=== PATIENT | female | born 1985 | race Caucasian/White ===

== ENCOUNTER 2016-07-13 08:46 | Emergency (ER) | payer OTHER ==
[2016-07-13 11:16] LABS: ABSOLUTE EOSINOPHILS # (AUTO) 0.2 10^3/uL (0.0-0.6); ABSOLUTE LYMPHOCYTES (AUTO) 2.5 10^3/uL (0.5-4.7); ABSOLUTE MONOCYTES (AUTO) 0.4 10^3/uL (0.1-1.4); ABSOLUTE NEUT (AUTO) 3.5 10^3/uL (1.7-8.2); BASOPHILS % (AUTO) 0.4 % (0-2); EOSINOPHILS % (AUTO) 2.6 % (0-6); HEMATOCRIT 40.4 % (36.0-47.0); HEMOGLOBIN 13.9 g/dL (12.0-15.5); HGB HCT DIFFERENCE 1.3; LYMPHOCYTES % (AUTO) 37.6 % (13-45); MEAN CORPUSCULAR HEMOGLOBIN 29.5 pg (27.0-33.4); MEAN CORPUSCULAR HGB CONC 34.5 g/dL (32.0-36.0); MEAN CORPUSCULAR VOLUME 86 fl (80-97); MONOCYTES % (AUTO) 6.6 % (3-13); RED BLOOD COUNT 4.72 10^6/uL (3.72-5.28); RED CELL DISTRIBUTION WIDTH 13.4 % (11.5-14.0); SEGMENTED NEUTROPHILS % (AUTO) 52.8 % (42-78); WHITE BLOOD COUNT 6.6 10^3/uL (4.0-10.5)
--- NOTE | 2016-07-13 11:25 | EKG REPORT ---
SEVERITY:- BORDERLINE ECG - SINUS RHYTHM PROBABLE LEFT ATRIAL ABNORMALITY : Confirmed by: Dalton Vazquez 13-Jul-2016 11:24:45
[2016-07-13 11:31] LABS: APPEARANCE,URINE CLOUDY; BILIRUBIN,URINE NEGATIVE (NEGATIVE); GLUCOSE, URINE NEGATIVE (NEGATIVE); KETONES,URINE NEGATIVE (NEGATIVE); LEUKOCYTE ESTERASE,URINE NEGATIVE (NEGATIVE); NITRITE,URINE NEGATIVE (NEGATIVE); PROTEIN,URINE 100 mg/dL (NEGATIVE); UROBILINOGEN,URINE NEGATIVE mg/dL (<2.0)
[2016-07-13 11:36] LABS: ANION GAP 10 (5-19); BLOOD UREA NITROGEN 11 mg/dL (7-20); CALCIUM 9.6 mg/dL (8.4-10.2); CARBON DIOXIDE 31 mmol/L (22-30); CHLORIDE 103 mmol/L (98-107); CREATINE KINASE 59 U/L (30-135); CREATININE RESULT 0.71 mg/dL (0.52-1.25); GLUCOSE 79 mg/dL (75-110); LIPASE 100.2 U/L (23-300); POTASSIUM 4.3 mmol/L (3.6-5.0); SODIUM 143.7 mmol/L (137-145)
[2016-07-13 11:47] LABS: URINE BARBITURATES SCREEN NEGATIVE; URINE METHADONE SCREEN NEGATIVE; URINE OPIATES LOW UNCONFIRMED POSITIVE; URINE PHENCYCLIDINE SCREEN NEGATIVE
[2016-07-13] MEDS ORDERED: LIDOCAINE 5% (700 MG) TRANSDERMAL ADH..PATCH TP ONE (12:26)
--- NOTE | 2016-07-13 12:27 | ER Document Report ---
ED General - General Chief Complaint: Chest Pain > 30 Stated Complaint: CHEST PAIN TRAVEL OUTSIDE OF THE [place] IN LAST 30 DAYS: No - HPI Patient complains to provider of: chest wall pain feeling unwell Notes: Patient coming in today expressing multiple complaints no which the most she is concerned about his left-sided chest wall pain and feeling of unwell. States symptoms ongoing for approximately 24 hours. Patient denies any recent antibiotics denies any recent travel. Patient denies sick contacts. Denies any past medical history. Patient states no nausea no vomiting no diarrhea. - Related Data Allergies/Adverse Reactions: prochlorperazine edisylate [From Compazine] Allergy (Intermediate, Verified 11:10) Hives prochlorperazine maleate [From Compazine] Allergy (Intermediate, Verified 11:10) Hives haloperidol [From Haldol] Allergy (Verified 08/23/12 11:10) haloperidol lactate [From Haldol] Allergy (Verified 08/23/12 11:10) ketorolac tromethamine [From Toradol] Allergy (Verified 08/23/12 11:10) NSAIDS (Non-Steroidal Anti-Inflamma [Nsaids] Allergy (Verified 08/23/12 11:10) Past Medical History - Social History Smoking Status: Current Every Day Smoker Chew tobacco use (# tins/day): No Frequency of alcohol use: None Drug Abuse: None Family History: Reviewed & Not Pertinent Patient has suicidal ideation: No Patient has homicidal ideation: No - Past Medical History Cardiac Medical History: Denies: Hx Atrial Fibrillation, Hx Coronary Artery Disease, Hx Heart Attack, Hx Hypertension Pulmonary Medical History: Denies: Hx Asthma, Hx Bronchitis, Hx COPD, Hx Pneumonia Neurological Medical History: Reports: Hx Migraine. Denies: Hx Cerebrovascular Accident, Hx Seizures Renal/ Medical History: Denies: Hx Peritoneal Dialysis GI Medical History: Musculoskeltal Medical History: Denies Hx Arthritis, Reports Hx Musculoskeletal Trauma Psychiatric Medical History: Reports: Hx Anxiety, Hx Bipolar Disorder Denies: Hx Attention Deficit Hyperactivity Disorder Infectious Medical History: Past Surgical History: Reports: Hx Abdominal Surgery - LAP x 2, Hx Appendectomy , Hx Section - x2, Hx Gynecologic Surgery - oopherectomy, Hx Hysterectomy, Hx Orthopedic Surgery - R Shoulder. Denies: Hx Pacemaker - Immunizations Immunizations up to date: Yes Hx Diphtheria, Pertussis, Tetanus Vaccination: Yes - 2007 Review of Systems - Review of Systems Constitutional: No symptoms reported EENT: No symptoms reported Cardiovascular: Chest pain Respiratory: No symptoms reported Gastrointestinal: No symptoms reported Genitourinary: No symptoms reported Female Genitourinary: No symptoms reported Musculoskeletal: No symptoms reported Skin: No symptoms reported Hematologic/Lymphatic: No symptoms reported Neurological/Psychological: No symptoms reported -: Yes All other systems reviewed and negative Physical Exam - Vital signs Vitals: Temp Pulse Resp BP Pulse Ox 97.9 F 94 20 122/84 100 07/13/16 09:20 07/13/16 09:20 07/13/16 09:20 07/13/16 09:20 07/13/16 09:20 Interpretation: Normal - General General appearance: Appears well, Alert - HEENT Head: Normocephalic, Atraumatic Eyes: Normal Pupils: PERRL - Respiratory Respiratory status: No respiratory distress Chest status: Tender - Tenderness palpation of left side chest reproduces the patient's pain. Breath sounds: Normal Chest palpation: Normal - Cardiovascular Rhythm: Regular Heart sounds: Normal auscultation Murmur: No - Abdominal Inspection: Normal Distension: No distension Bowel sounds: Normal Tenderness: Nontender Organomegaly: No organomegaly - Back Back: Normal, Nontender - Extremities General upper extremity: Normal inspection, Nontender, Normal color, Normal ROM , Normal temperature General lower extremity: Normal inspection, Nontender, Normal color, Normal ROM , Normal temperature, Normal weight bearing. No: Luis Manuel's sign - Neurological Neuro grossly intact: Yes Cognition: Normal Orientation: AAOx4 [place] Coma Scale Eye Opening: Spontaneous [place] Coma Scale Verbal: Oriented Mike Coma Scale Motor: Obeys Commands [place] Coma Scale Total: 15 Speech: Normal Motor strength normal: LUE, RUE, LLE, RLE Sensory: Normal - Psychological Associated symptoms: Normal affect, Normal mood - Skin Skin Temperature: Warm Skin Moisture: Dry Skin Color: Normal Course - Re-evaluation Re-evalutation: 07/13/16 18:54 Patient was evaluated for chest wall pain. No clear etiology seen. Patient was encouraged take Tylenol we will try Lidoderm patches that the patient is allergic to NSAIDs. Review of patient's narcotic database does show multiple narcotics in the last few days explained patient we will hold from prescribing his medication. Patient states understanding. : The patient has atypical chest pain as the patient's chest pain is not suggestive of pulmonary embolus, cardiac ischemia, aortic dissection, or other serious etiology. Given the extremely low risk of these diagnoses further testing and evaluation for these possibilities does not appear to be indicated at this time. The patient has been instructed to return if the symptoms worsen or change in any way. - Vital Signs Vital signs: Temp Pulse Resp BP Pulse Ox 97.8 F 94 26 H 116/77 100 07/13/16 12:39 07/13/16 09:20 07/13/16 12:36 07/13/16 12:37 07/13/16 12:37 - Laboratory Result Diagrams: 07/13/16 10:45 07/13/16 10:45 Laboratory results interpreted by me: 07/13/16 07/13/16 10:45 10:45 Carbon Dioxide 31 H Urine Protein 100 H Discharge - Discharge Clinical Impression: Chest wall pain Condition: Good Disposition: HOME, SELF-CARE Instructions: Chest Wall Pain ([facility]) Additional Instructions: Examination days consistent with chest wall pain. Your laboratory studies showed no other concerning etiologies. Most family treat chest wall pain anti- inflammatory medications. He may also try Lidoderm patches or [id number] solanpas lidocaine patches. Also recommend taking Tylenol. Return to the ER symptoms worsen. Follow-up with your primary care physician. Prescriptions: Lidocaine [Lidoderm 5% (700 mg) Transdermal Patch] 1 patch TP DAILY #30 adh..patch Referrals: LIZA TURNER [Primary Care Provider] - Follow up in 3-5 days
[2016-07-13 13:07] VITALS: BP 116/77
== END 2016-07-13 12:39 | disposition home or self-care (01) ==
LOC: ER 08:46
DX: R07.89 Other chest pain (principal); F17.200 Nicotine dependence, unspecified, uncomplicated; Z88.8 Allergy status to other drugs, medicaments and biological substances
CPT/HCPCS: 36415; 71020; 80048; 80307; 81001; 82550; 83690; 84484; 85025; 93005; 93010; 99285

== ENCOUNTER 2018-08-19 15:41 | Observation (INO) | payer OTHER ==
--- NOTE | 2018-08-19 16:08 | ER Document Report ---
ED Medical Screen (RME) - General Chief Complaint: Abdominal Pain Stated Complaint: ABDOMINAL PAIN Time Seen by Provider: 08/19/18 16:03 Mode of Arrival: Ambulatory Information source: Patient Notes: 33-year-old female presents with right upper quadrant abdominal pain with associated nausea and vomiting. Reports worse with food I have greeted and performed a rapid initial assessment of this patient. A comprehensive ED assessment and evaluation of the patient, analysis of test results and completion of medical decision making process we will be contacted by additional ED providers. PHYSICAL EXAMINATION: Vital signs reviewed-hypertensive GENERAL: Tearful, appears to be in pain, holding her upper stomach. LUNGS: No respiratory distress Musculoskeletal: Normal range of motion NEUROLOGICAL: Normal speech, normal gait. PSYCH: Normal mood, normal affect. SKIN: Warm, Dry, normal turgor, no rashes or lesions noted. TRAVEL OUTSIDE OF THE [place] IN LAST 30 DAYS: No - HPI Onset: Other Onset/Duration: Gradual, Persistent, Worse Quality of pain: Throbbing Severity: Severe Associated Symptoms: Nausea, Vomiting Exacerbated by: Food Relieved by: Denies Similar symptoms previously: No Recently seen / treated by doctor: No - Related Data Smoking: Cigarettes Frequency of alcohol use: None Drug Abuse: None Allergies/Adverse Reactions: prochlorperazine edisylate [From Compazine] Allergy (Intermediate, Verified 08/19/18 16:04) Hives prochlorperazine maleate [From Compazine] Allergy (Intermediate, Verified 08/19/18 16:04) Hives haloperidol [From Haldol] Allergy (Verified 08/19/18 16:04) haloperidol lactate [From Haldol] Allergy (Verified 08/19/18 16:04) ketorolac tromethamine [From Toradol] Allergy (Verified 08/19/18 16:04) NSAIDS (Non-Steroidal Anti-Inflamma [Nsaids] Allergy (Verified 08/19/18 16:04) Past Medical History - Past Medical History Cardiac Medical History: Denies: Hx Atrial Fibrillation, Hx Coronary Artery Disease, Hx Heart Attack, Hx Hypertension Pulmonary Medical History: Denies: Hx Asthma, Hx Bronchitis, Hx COPD, Hx Pneumonia Neurological Medical History: Reports: Hx Migraine. Denies: Hx Cerebrovascular Accident, Hx Seizures Renal/ Medical History: Denies: Hx Peritoneal Dialysis GI Medical History: Musculoskeltal Medical History: Denies Hx Arthritis, Reports Hx Musculoskeletal Trauma Psychiatric Medical History: Reports: Hx Anxiety, Hx Bipolar Disorder Denies: Hx Attention Deficit Hyperactivity Disorder Infectious Medical History: Past Surgical History: Reports: Hx Abdominal Surgery - LAP x 2, Hx Appendectomy, Hx Section - x2, Hx Gynecologic Surgery - oopherectomy, Hx Hysterectomy, Hx Orthopedic Surgery - R Shoulder. Denies: Hx Pacemaker - Immunizations Immunizations up to date: Yes Hx Diphtheria, Pertussis, Tetanus Vaccination: Yes - 2007 Physical Exam - Vital signs Vitals: Temp Pulse Resp BP Pulse Ox 98.0 F 108 H 16 162/103 H 98 08/19/18 15:48 08/19/18 15:48 08/19/18 15:48 08/19/18 15:48 08/19/18 15:48 Course - Vital Signs Vital signs: Temp Pulse Resp BP Pulse Ox 98.0 F 108 H 16 162/103 H 98 08/19/18 15:48 08/19/18 15:48 08/19/18 15:48 08/19/18 15:48 08/19/18 15:48
[2018-08-19] MEDS ORDERED: MORPHINE SULFATE 10 MG/ML INJ IV ONE (16:09)
[2018-08-19] MEDS ORDERED: ONDANSETRON HCL INJ/PF 4 MG/2 ML SDV IV ONE (16:09)
[2018-08-19 16:30] LABS: ABSOLUTE EOSINOPHILS # (AUTO) 2.1 10^3/uL (0.0-0.6); ABSOLUTE LYMPHOCYTES (AUTO) 3.2 10^3/uL (0.5-4.7); ABSOLUTE MONOCYTES (AUTO) 0.6 10^3/uL (0.1-1.4); ABSOLUTE NEUT (AUTO) 3.4 10^3/uL (1.7-8.2); BASOPHILS % (AUTO) 0.5 % (0-2); EOSINOPHILS % (AUTO) 22.5 % (0-6); HEMATOCRIT 36.5 % (36.0-47.0); HEMOGLOBIN 12.5 g/dL (12.0-15.5); LYMPHOCYTES % (AUTO) 34.1 % (13-45); MEAN CORPUSCULAR HEMOGLOBIN 28.4 pg (27.0-33.4); MEAN CORPUSCULAR HGB CONC 34.4 g/dL (32.0-36.0); MEAN CORPUSCULAR VOLUME 83 fl (80-97); MONOCYTES % (AUTO) 6.8 % (3-13); PLATELET COUNT 374 10^3/uL (150-450); RED BLOOD COUNT 4.41 10^6/uL (3.72-5.28); RED CELL DISTRIBUTION WIDTH 13.2 % (11.5-14.0); SEGMENTED NEUTROPHILS % (AUTO) 36.1 % (42-78); TOTAL CELLS COUNTED % (AUTO) 100 %; WHITE BLOOD COUNT 9.5 10^3/uL (4.0-10.5)
[2018-08-19 17:01] LABS: ALANINE AMINOTRANSFERASE 36 U/L (9-52); ALBUMIN 3.8 g/dL (3.5-5.0); ALKALINE PHOSPHATASE 58 U/L (38-126); ANION GAP 7 (5-19); ASPARTATE AMINO TRANSFERASE 47 U/L (14-36); BILIRUBIN,DIRECT 0.1 mg/dL (0.0-0.4); BILIRUBIN,TOTAL 0.2 mg/dL (0.2-1.3); BLOOD UREA NITROGEN 12 mg/dL (7-20); CALCIUM 9.3 mg/dL (8.4-10.2); CARBON DIOXIDE 31 mmol/L (22-30); CHLORIDE 98 mmol/L (98-107); GLUCOSE 105 mg/dL (75-110); POTASSIUM 3.8 mmol/L (3.6-5.0); SODIUM 136.4 mmol/L (137-145); TOTAL PROTEIN 6.1 g/dL (6.3-8.2)
[2018-08-19] MEDS ORDERED: HYDROMORPHONE HCL INJ/PF 2 MG/ML AMPULE IV ONE ×3 (17:20→20:52)
--- NOTE | 2018-08-19 17:26 | ER Document Report ---
ED General - General Chief Complaint: Abdominal Pain Stated Complaint: ABDOMINAL PAIN Time Seen by Provider: 08/19/18 16:03 Primary Care Provider: GURU RATLIFF MD [Primary Care Provider] - Follow up as needed Mode of Arrival: Ambulatory Information source: Patient TRAVEL OUTSIDE OF THE [place] IN LAST 30 DAYS: No - HPI Patient complains to provider of: Right upper quadrant pain Onset: Last week Onset/Duration: Persistent, Worse Quality of pain: Sharp Severity: Severe Pain Level: 4 Associated symptoms: Chills, Fever, Nausea, Vomiting. 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 She had some abdominal discomfort for the past week but this symptoms have worsened over the past couple days. States she has had fevers and chills with nausea and vomiting. Pain radiates to her back. No previous history of this. - Related Data Allergies/Adverse Reactions: prochlorperazine edisylate [From Compazine] Allergy (Intermediate, Verified 08/19/18 16:04) Hives prochlorperazine maleate [From Compazine] Allergy (Intermediate, Verified 08/19/18 16:04) Hives haloperidol [From Haldol] Allergy (Verified 08/19/18 16:04) haloperidol lactate [From Haldol] Allergy (Verified 08/19/18 16:04) ketorolac tromethamine [From Toradol] Allergy (Verified 08/19/18 16:04) NSAIDS (Non-Steroidal Anti-Inflamma [Nsaids] Allergy (Verified 08/19/18 16:04) Past Medical History - General Information source: Patient - Social History Smoking Status: Current Every Day Smoker Frequency of alcohol use: None Drug Abuse: None Family History: Reviewed & Not Pertinent Patient has suicidal ideation: No Patient has homicidal ideation: No - Past Medical History Cardiac Medical History: Denies: Hx Atrial Fibrillation, Hx Coronary Artery Disease, Hx Heart Attack, Hx Hypertension Pulmonary Medical History: Denies: Hx Asthma, Hx Bronchitis, Hx COPD, Hx Pneumonia Neurological Medical History: Reports: Hx Migraine. Denies: Hx Cerebrovascular Accident, Hx Seizures Renal/ Medical History: Denies: Hx Peritoneal Dialysis GI Medical History: Musculoskeletal Medical History: Denies Hx Arthritis, Reports Hx Musculoskeletal Trauma Psychiatric Medical History: Reports: Hx Anxiety, Hx Bipolar Disorder Denies: Hx Attention Deficit Hyperactivity Disorder Infectious Medical History: Past Surgical History: Reports: Hx Abdominal Surgery - LAP x 2, Hx Appendectomy, Hx Section - x2, Hx Gynecologic Surgery - oopherectomy, Hx Hysterectomy, Hx Orthopedic Surgery - R Shoulder. Denies: Hx Pacemaker - Immunizations Immunizations up to date: Yes Hx Diphtheria, Pertussis, Tetanus Vaccination: Yes - 2007 Review of Systems - Review of Systems Notes: Constitutional: Positive fever and chills EENT: No eye redness. No eye pain. No ear pain. No sore throat. Cardiovascular: No chest pain. No palpitations. Respiratory: No cough. No shortness of breath. No respiratory distress. Gastrointestinal: Positive for abdominal pain. Positive for nausea and vomiting. Negative for diarrhea Genitourinary: Atraumatic. No lesions. No pain. No discharge. Musculoskeletal: Atraumatic. No swelling. No deformities. Skin: No rash or lesions. Lymphatic: No swollen lymph nodes. Neurologic: No headache. No syncope. Psychiatric: No suicidal or homicidal ideation. Physical Exam - Vital signs Vitals: Temp Pulse Resp BP Pulse Ox 98.0 F 108 H 16 162/103 H 98 08/19/18 15:48 08/19/18 15:48 08/19/18 15:48 08/19/18 15:48 08/19/18 15:48 - Notes Notes: General: Well-developed, well-nourished. Very tearful. Obvious severe discomfort. Nontoxic-appearing Cardiac: Well-perfused. Regular rate and rhythm. No murmurs, rubs, or gallops. Pulmonary: No respiratory distress. No cyanosis. Bilateral lung fiels are clear to auscultation. Abdominal: Exquisite tenderness to palpation over the right upper quadrant. T here is guarding present. No rebound. Abdomen feels firm to palpation. Bowel sounds are present in all 4 quadrants HEENT: Head is atraumatic. Conjunctivae not reddened. No tearing. PERRL. EOMI. Orbits atraumatic. No periorbital swelling or erythema. Oropharynx is without erythema, swelling, or exudates. Neck: Supple. No adenopathy. No meningismus. Dermatologic: Warm with good turgor. No rash. Atraumatic. Chest: Atraumatic. No chest wall tenderness to palpation. Musculoskeletal: Moves all extremities well. No range of motion deficits. no muscular or joint tenderness. No paraspinal muscle tenderness. no midline spinal tenderness or step-off. Genitourinary: Examination deferred Neurologic: No gross neurologic deficits. Psychiatric: Normal mood. Course - Re-evaluation Re-evalutation: 08/19/18 17:26 Patient is presenting like an acute cholecystitis. Ultrasound is pending. 08/19/18 23:13 Patient's labs are all back and gallbladder ultrasound shows sludge. Patient still in intractable abdominal pain and vomiting now. I will contact surgicalist for evaluation. - Vital Signs Vital signs: Temp Pulse Resp BP Pulse Ox 98.1 F 111 H 22 H 157/90 H 98 08/19/18 20:27 08/19/18 20:27 08/19/18 20:27 08/19/18 20:27 08/19/18 20:27 - Laboratory Result Diagrams: 08/19/18 16:17 08/19/18 16:17 Laboratory results interpreted by me: 08/19/18 08/19/18 08/19/18 16:17 16:17 17:39 Seg Neutrophils % 36.1 L Eosinophils % 22.5 H Absolute Eosinophils 2.1 H Sodium 136.4 L Carbon Dioxide 31 H AST 47 H Total Protein 6.1 L Urine Blood SMALL H Ur Leukocyte Esterase MODERATE H - Diagnostic Test Radiology reviewed: Reports reviewed - Consults BECK Time consulted: 23:24 Reason for consultation: 08/19/18 23:24 INTRACTABLE PAIN AND VOMITING Consulted provider: other - Came to evaluate the patient and then agreed to admit her for cholecystectomy. Discharge - Discharge Clinical Impression: Right upper quadrant pain, Sludge in gallbladder Nausea and vomiting Qualifiers: Vomiting type: unspecified Vomiting Intractability: non-intractable Qualified Code(s): R11.2 - Nausea with vomiting, unspecified Condition: Good Disposition: ADMITTED OBSERVATION Admitting Provider: Surgicalist - DR SOLARES Unit Admitted: Surgical Floor Referrals: GURU RATLIFF MD [Primary Care Provider] - Follow up as needed
[2018-08-19 17:49] LABS: APPEARANCE,URINE SLIGHTLY-CLOUDY; BILIRUBIN,URINE NEGATIVE (NEGATIVE); COLOR,URINE YELLOW; GLUCOSE, URINE NEGATIVE (NEGATIVE); KETONES,URINE NEGATIVE (NEGATIVE); LEUKOCYTE ESTERASE,URINE MODERATE (NEGATIVE); NITRITE,URINE NEGATIVE (NEGATIVE); PROTEIN,URINE NEGATIVE (NEGATIVE); URINE SPECIFIC GRAVITY 1.011; UROBILINOGEN,URINE NEGATIVE mg/dL (<2.0)
--- NOTE | 2018-08-19 20:17 | RADIOLOGY REPORT (SQ) ---
EXAM DESCRIPTION: US ABDOMEN LIMITED COMPLETED DATE/TME: 08/19/2018 16:09 CLINICAL HISTORY: 33 years, Female, Pain Findings: Pancreas is within normal limits. Aorta and IVC are within normal limits. Liver is within normal limits with no focal lesions. No biliary dilatation with CBD measuring 6 mm. Portal vein is patent with hepatopedal flow on color and spectral Doppler images. Gallbladder demonstrates small amount of sludge. No significant wall thickening or pericholecystic fluid. No right hydronephrosis. No right upper quadrant ascites. IMPRESSION: Mild gallbladder sludge. No evidence for cholecystitis. No significant biliary dilatation.
--- NOTE | 2018-08-19 22:17 | RADIOLOGY REPORT (SQ) ---
CT ABDOMEN PELVIS WITH IV CONTRAST HISTORY: Abdominal pain. COMPARISON: None. TECHNIQUE: CT scan of the abdomen and pelvis with IV contrast. This exam was performed according to our departmental dose-optimization program, which includes automated exposure control, adjustment of the mA and/or kV according to patient size and/or use of iterative reconstruction technique. FINDINGS: The lung bases are clear. No pleural or pericardial effusions. There is no hiatal hernia. Partially visualized bilateral breast implants. The liver, spleen, pancreas, gallbladder, adrenal glands, and kidneys are unremarkable. No urinary stones are seen. There has been a prior hysterectomy. No small bowel obstruction. The appendix is not well visualized; however there are no inflammatory changes in the right lower quadrant. There is no evidence of diverticulitis. No intraperitoneal free fluid or free air is identified. The aorta is normal caliber. No acute osseous findings are appreciated. There is no body wall hernia. IMPRESSION: No acute abdominal or pelvic pathology.
[2018-08-19] MEDS ORDERED: NORMAL SALINE 1000 ML 1,000 ML IV ONE (23:12)
[2018-08-19] MEDS ORDERED: FENTANYL CITRATE INJ/PF 100 MCG/2 ML AMPUL IV ONE (23:12)
[2018-08-19] MEDS ORDERED: METOCLOPRAMIDE HCL INJ/PF 10 MG/2 ML SDV IV ONE (23:12)
--- NOTE | 2018-08-19 23:53 | PDOC H&P ---
History of Present Illness Admission Date/PCP: 08/19/18 23:32 GURU RATLIFF MD Patient complains of: Abdominal pain History of Present Illness: CLAU MAYORGA is a 33 year old female Presents to the emergency complaining of acute onset abdominal pain, po stprandial right upper quadrant associated with nausea and vomiting. She says several previous episodes over the last several weeks. Patient was seen in the emergency department where she had a gallbladder ultrasound which showed sludge. A CT scan without oral contrast showed no pathology. Patient was treated with antiemetics pain medication fluids and was still writhing in discomfort. Jessicar hayder was consulted and she was advised admission for management of her gallbladder disease. Past Medical History Past Medical History: Migraine headaches; history of bipolar disorder Cardiac Medical History: Denies: Atrial Fibrillation, Coronary Artery Disease, Myocardial Infarction, Hypertension Pulmonary Medical History: Denies: Asthma, Bronchitis, Chronic Obstructive Pulmonary Disease (COPD), Pneumonia Neurological Medical History: Reports: Migraine Denies: Seizures GI Medical History: Musculoskeltal Medical History: Denies: Arthritis Psychiatric Medical History: Reports: Bipolar Disorder Denies: Attention Deficit Hyperactivity Disorder Hematology: Denies: Anemia Past Surgical History Past Surgical History: Reports: Appendectomy, Section - x2, Hysterectomy, Orthopedic Surgery - R Shoulder Denies: Pacemaker Social History Smoking Status: Current Every Day Smoker Hx Recreational Drug Use: No Family History Family History: Reviewed & Not Pertinent Parental Family History Reviewed: Yes Children Family History Reviewed: Yes Sibling(s) Family History Reviewed.: Yes Medication/Allergy Home Medications: No Home Medications 08/19/18 Allergies/Adverse Reactions: prochlorperazine edisylate [From Compazine] Allergy (Intermediate, Verified 08/19/18 16:04) Hives prochlorperazine maleate [From Compazine] Allergy (Intermediate, Verified 08/19/18 16:04) Hives haloperidol [From Haldol] Allergy (Verified 08/19/18 16:04) haloperidol lactate [From Haldol] Allergy (Verified 08/19/18 16:04) ketorolac tromethamine [From Toradol] Allergy (Verified 08/19/18 16:04) NSAIDS (Non-Steroidal Anti-Inflamma [Nsaids] Allergy (Verified 08/19/18 16:04) Review of Systems Constitutional: PRESENT: as per HPI Eyes: ABSENT: visual disturbances Ears: ABSENT: hearing changes Cardiovascular: ABSENT: chest pain, dyspnea on exertion, edema, orthropnea, palpitations Respiratory: ABSENT: cough, hemoptysis Gastrointestinal: PRESENT: as per HPI Genitourinary: PRESENT: as per HPI Musculoskeletal: ABSENT: joint swelling Integumentary: ABSENT: rash, wounds Physical Exam Vital Signs: Temp Pulse Resp BP Pulse Ox 98 F 105 H 23 H 128/76 H 97 08/19/18 23:33 08/19/18 23:33 08/19/18 23:33 08/19/18 23:33 08/19/18 23:33 Intake & Output 08/18/18 08/19/18 08/20/18 06:59 06:59 06:59 Weight 57.6 kg General appearance: PRESENT: other - Quite anxious Head exam: PRESENT: normocephalic Eye exam: PRESENT: EOMI Mouth exam: PRESENT: dry mucosa Neck exam: PRESENT: full ROM Respiratory exam: PRESENT: clear to auscultation shannon Cardiovascular exam: PRESENT: RRR Pulses: PRESENT: normal carotid pulses, normal radial pulses, normal femoral pulses, normal dorsalis pedis pul GI/Abdominal exam: PRESENT: other - Tender right upper quadrant, with no board like rigidity; no abdominal distention Rectal exam: PRESENT: deferred Extremities exam: PRESENT: full ROM Musculoskeletal exam: PRESENT: full ROM Neurological exam: PRESENT: awake, oriented to person, oriented to place, oriented to time, oriented to situation Psychiatric exam: PRESENT: anxious Results Laboratory Results: 08/19/18 16:17 08/19/18 16:17 08/19/18 08/19/18 08/19/18 16:17 16:17 17:39 WBC 9.5 RBC 4.41 Hgb 12.5 Hct 36.5 MCV 83 MCH 28.4 MCHC 34.4 RDW 13.2 Plt Count 374 Seg Neutrophils % 36.1 L Lymphocytes % 34.1 Monocytes % 6.8 Eosinophils % 22.5 H Basophils % 0.5 Absolute Neutrophils 3.4 Absolute Lymphocytes 3.2 Absolute Monocytes 0.6 Absolute Eosinophils 2.1 H Absolute Basophils 0.0 Sodium 136.4 L Potassium 3.8 Chloride 98 Carbon Dioxide 31 H Anion Gap 7 BUN 12 Creatinine 0.85 Est GFR ( Amer) > 60 Est GFR (Non-Af Amer) > 60 Glucose 105 Calcium 9.3 Total Bilirubin 0.2 AST 47 H ALT 36 Alkaline Phosphatase 58 Total Protein 6.1 L Albumin 3.8 Lipase 49.0 Urine Color YELLOW Urine Appearance SLIGHTLY-CLOUDY Urine pH 5.0 Ur Specific Luckey 1.011 Urine Protein NEGATIVE Urine Glucose (UA) NEGATIVE Urine Ketones NEGATIVE Urine Blood SMALL H Urine Nitrite NEGATIVE Ur Leukocyte Esterase MODERATE H Urine WBC (Auto) 7 Urine RBC (Auto) 4 Impressions: Abdomen Ultrasound 08/19/18 16:09 IMPRESSION: Mild gallbladder sludge. No evidence for cholecystitis. No significant biliary dilatation. Abdomen/Pelvis CT 08/19/18 20:53 IMPRESSION: No acute abdominal or pelvic pathology. Assessment & Plan - Diagnosis (1) Sludge in gallbladder Is this a current diagnosis for this admission?: Yes Plan: Impression: Chronic cholecystitis, cholelithiasis, symptomatic, refractory to outpatient management Recommendations: 1. We will set patient up for admission, observation status, interval laparoscopic, possible open cholecystectomy, Dr. Blackmon, August 20. (2) Smoker Is this a current diagnosis for this admission?: Yes (3) History of bipolar disorder Is this a current diagnosis for this admission?: Yes (4) Nausea and vomiting Qualifiers: Vomiting type: unspecified Vomiting Intractability: non-intractable Qualified Code(s): R11.2 - Nausea with vomiting, unspecified Is this a current diagnosis for this admission?: Yes (5) Right upper quadrant pain Is this a current diagnosis for this admission?: Yes - Time Time Spent: 30 to 50 Minutes Medications reviewed and adjusted accordingly: Yes Anticipated discharge: Home - Inpatient Certification Based on my medical assessment, after consideration of the patient's comorbidities, presenting symptoms, or acuity I expect that the services needed warrant INPATIENT care.: Yes I certify that my determination is in accordance with my understanding of Medicare's requirements for reasonable and necessary INPATIENT services [42 CFR 412.3e].: Yes Medical Necessity: Need for Pain Control, Need for IV Antibiotics, Need for Surgery
[2018-08-20] MEDS: ACETAMINOPHEN INJ/PF 1000 MG/100 ML SDV IV SCH ×4 (01:22→18:22)
[2018-08-20] MEDS: RINGERS SOLUTION,LACTATED 1,000 ML IV PRN ×2 (01:30→08:11)
[2018-08-20] MEDS ORDERED: CEFAZOLIN 1 GM/D5W RTU 1 GM/50 ML RTUPB IV ONE ×2 (06:34→09:55)
[2018-08-20] MEDS ORDERED: DEXMEDETOMIDINE INJ 80 MCG/20 ML VIAL IV ONE (09:52)
[2018-08-20] MEDS ORDERED: EPHEDRINE SULFATE INJ 50 MG/1 ML AMPULE ONE (09:52)
[2018-08-20] MEDS ORDERED: MIDAZOLAM 2 MG/2 ML INJ ONE (09:52)
[2018-08-20] MEDS ORDERED: FENTANYL CITRATE INJ/PF 250 MCG/5 ML AMPULE ONE (09:52)
[2018-08-20] MEDS ORDERED: PROPOFOL INJ 200 MG/20 ML VIAL IV ONE (09:53)
[2018-08-20] MEDS ORDERED: ACETAMINOPHEN 1,000 MG/100 ML RTUPB IV ONE (09:53)
[2018-08-20] MEDS ORDERED: BUPIVACAINE HCL 0.5%-EPI 1:200000 INJ/PF 30 ML VIAL ONE (10:14)
[2018-08-20] MEDS ORDERED: DIPHENHYDRAMINE HCL 50 MG/ML VIAL IV PRN (12:23)
[2018-08-20] MEDS ORDERED: FENTANYL CITRATE INJ/PF 100 MCG/2 ML AMPUL IV PRN ×3 (12:23)
[2018-08-20] MEDS ORDERED: MEPERIDINE HCL/PF INJ 25 MG/1 ML DISP.SYRIN IV PRN (12:23)
--- NOTE | 2018-08-20 12:51 | Operative Report ---
Nonrecallable Operative Report DATE OF SURGERY: 08/20/18 PREOPERATIVE DIAGNOSIS: cholecystitis POSTOPERATIVE DIAGNOSIS: cholecystitits OPERATION: laparoscopic cholecystectomy ANESTHESIA: GA TISSUE REMOVED OR ALTERED: gallbladder COMPLICATIONS: none ESTIMATED BLOOD LOSS: 10cc. INTRAOPERATIVE FINDINGS: see dictation PROCEDURE: see dictation
[2018-08-20] MEDS: FENTANYL CITRATE INJ/PF 100 MCG/2 ML AMPUL ONE ×2 (13:17→13:23)
--- NOTE | 2018-08-20 13:23 | OPERATIVE REPORT E ---
Operative Report NAME: CLAU MAYORGA : 1985 AGE: 33Y DATE OF SURGERY: 08/20/2018 ROOM: 228 PREOPERATIVE DIAGNOSIS: Cholecystitis. POSTOPERATIVE DIAGNOSIS: Cholecystitis. OPERATIVE PROCEDURE: Laparoscopic cholecystectomy. SURGEON: PK RAYO M.D. ANESTHESIA: General. INDICATIONS FOR SURGERY: This is a 33-year-old female who presented to the emergency room yesterday with acute onset upper abdominal pain postprandial, right upper quadrant radiating to her back, associated with nausea and vomiting. CT scan was obtained which showed no pathology. Ultrasound shows gallbladder sludge and a mildly thickened gallbladder wall. She was, therefore, scheduled for this procedure. PROCEDURE: The patient was brought to the operating room in an awake and alert stable condition, placed on the operative table in supine position, induced under general anesthesia, and intubated. The abdomen was prepped and draped in the usual sterile manner for the procedure. After an appropriate time out a Veress needle was placed into the umbilicus and the abdomen was insufflated with 6 L of CO2 gas. An infraumbilical 10 mm incision was made with a 15 blade and a 10 mm port placed in the abdominal cavity. Intra-abdominal visualization revealed no evidence of a Veress needle or trocar injury. Two right-sided 5 mm ports were placed under direct vision and an epigastric 5 mm port. The gallbladder was identified; it was placed on traction. The hepatoduodenal ligament was dissected, isolating the cystic duct and cystic artery. Two Endoclips were placed on the stay side and 1 on the specimen side of both these structures, and they were divided. The gallbladder was dissected out of the liver bed with Bovie cautery, placed in an Endobag, and removed through the umbilical port site. The right upper quadrant was irrigated with normal saline and suctioned dry. Hemostasis of the liver bed was obtained with Bovie cautery. After good hemostasis the pneumoperitoneum was reduced and the ports were removed. The umbilical fascial defect was closed with 0 Vicryl and then all 4 skin incisions were closed with intracuticular 4-0 Biosyn. Steri-Strips completed the procedure. Estimated blood loss was less than 25 mL. Sponge and needle counts were correct x2. The patient was awakened in the operating room, extubated, and transferred to recovery in stable condition, no complications. DICTATING PHYSICIAN: PK RAYO M.D. [id number] PHY#: [id number] ID: [id number] JOB#: [id number] ACCT: [id number] cc:PK RAYO M.D. >
[2018-08-20] MEDS ORDERED: METOCLOPRAMIDE HCL INJ/PF 10 MG/2 ML SDV ONE (13:48)
[2018-08-20] MEDS ORDERED: DEXAMETHASONE SOD PHOSPHATE INJ 4 MG/1 ML VIAL ONE (13:48)
[2018-08-20] MEDS ORDERED: GLYCOPYRROLATE 1 MG/5 ML SYRINGE ONE (13:48)
[2018-08-20] MEDS ORDERED: ONDANSETRON HCL INJ/PF 4 MG/2 ML SDV ONE (13:48)
[2018-08-20] MEDS ORDERED: LIDOCAINE 2% INJ-PF (20 MG/ML) 2 ML AMPUL ONE (13:48)
[2018-08-20] MEDS ORDERED: NEOSTIGMINE METHYLSULFATE 10 MG/10 ML VIAL ONE (13:48)
[2018-08-20] MEDS: MORPHINE SULFATE 10 MG/ML INJ IV PRN ×2 (14:14→18:23)
[2018-08-20] MEDS ORDERED: OXYCODONE-ACETAMINOPHEN 5-325 MG TABLET PO PRN (16:08)
[2018-08-20] MEDS ORDERED: OXYCODONE HCL IR 5 MG TABLET PO PRN (16:08)
--- NOTE | 2018-08-20 19:08 | Discharge Summary ---
Discharge Summary (SDC) - Discharge Final Diagnosis: biliary cholic Date of Surgery: 08/20/18 Condition: Good Referrals: [facility] [Provider Group] - 08/30/18 9:00 am (Please follow up at [facility] on 08/30/18 at 9:00 am. If you have any questions or need to reschedule please call the office directly at ([phone].) Discharge Diet: As Tolerated Discharge Activity: Activity As Tolerated, No Lifting Over 10 Pounds Report the Following to Your Physician Immediately: Nausea, Vomiting, Increase in Pain, Fever over 101 Degrees, Unusual Bleeding - needs f/u appoint with me in surgery clinic in7-10 days
[2018-08-20 19:59] VITALS: BP 110/60
--- NOTE | 2018-08-20 21:13 | DISCHARGE SUMMARY E ---
Discharge Summary NAME: CLAU MAYORGA : 1985 AGE: 33Y ADMITTED: 08/19/2018 DISCHARGED: 08/20/2018 ADMISSION DIAGNOSIS: CHRONIC CHOLECYSTITIS, BILIARY COLIC. DISCHARGE DIAGNOSIS: CHRONIC CHOLECYSTITIS, BILIARY COLIC. OPERATIVE PROCEDURE: LAPAROSCOPIC CHOLECYSTECTOMY. REASON FOR HOSPITALIZATION/HOSPITAL COURSE: This is a 33-year-old female who presented to the emergency room on 08/19/2018 with postprandial right upper quadrant pain. She stated she had several episodes over the last several weeks, but on presentation it was the worst episode. She underwent a gallbladder ultrasound, which showed gallbladder sludge, and surgical consult was obtained. She was taken to the operating room today for laparoscopic cholecystectomy. She tolerated the procedure well. Postoperatively, she had a routine benign postoperative course. She was started on a clear liquid diet, which was slowly advanced. By the time of discharge, she is afebrile with stable vital signs, tolerating a full liquid diet. Her pain is controlled and she is ready for discharge home. She is instructed not to do any heavy lifting of anything greater than 5-10 pounds for the next 4 weeks. She will get an appointment in 7-10 days after discharge to follow up with me in the surgery clinic. She is instructed to call my clinic or the hospital quality control operator in order to get hold of me for any increased abdominal pain, fever over 101, or nausea and vomiting. She is also to return to the emergency room should she experience any severe abdominal pain, high fevers, or inability to tolerate p.o. intake. DISCHARGE MEDICATIONS: Percocet 10/325 #20 one p.o. q.6 hours as needed for pain. DICTATING PHYSICIAN: PK RAYO M.D. [id number] PHY#: [id number] ID: [id number] JOB#: [id number] ACCT: [id number] cc:OSWALD SOLARES M.D. PK RAYO M.D. >
== END 2018-08-20 19:25 | disposition home or self-care (01) ==
LOC: ER 15:41 → EH 23:32 → 2S 08-20 01:23
PROVIDERS: ADMIT Surgery; ATTEND Surgery
PROC: 0FT44ZZ Resection of Gallbladder, Percutaneous Endoscopic Approach (ICD-10-PCS; principal; 2018-08-20 11:00)
DX: K81.1 Chronic cholecystitis (principal); F17.210 Nicotine dependence, cigarettes, uncomplicated; Z90.49 Acquired absence of other specified parts of digestive tract; Z90.710 Acquired absence of both cervix and uterus; Z86.59 Personal history of other mental and behavioral disorders
CPT/HCPCS: 36415; 74177; 76705; 790; 80053; 81001; 81025; 83690; 85025; 88304; 96361; 96374; 96375; 96376; 99285; G0378; J0131; J1100; J1170; J2250; J2270; J2405; J2704; J2765; J3010; J3490; J7030; J7120

== ENCOUNTER → 2019-05-27 | Outpatient (CLI) | payer OTHER ==
[2019-05-27 15:17] LABS: ABSOLUTE EOSINOPHILS # (AUTO) 0.4 10^3/uL (0.0-0.6); ABSOLUTE LYMPHOCYTES (AUTO) 1.8 10^3/uL (0.5-4.7); ABSOLUTE MONOCYTES (AUTO) 0.4 10^3/uL (0.1-1.4); ABSOLUTE NEUT (AUTO) 3.8 10^3/uL (1.7-8.2); BASOPHILS % (AUTO) 0.7 % (0-2); EOSINOPHILS % (AUTO) 6.7 % (0-6); HEMOGLOBIN 14.1 g/dL (12.0-15.5); LYMPHOCYTES % (AUTO) 27.1 % (13-45); MEAN CORPUSCULAR HEMOGLOBIN 29.2 pg (27.0-33.4); MEAN CORPUSCULAR HGB CONC 34.3 g/dL (32.0-36.0); MEAN CORPUSCULAR VOLUME 85 fl (80-97); MONOCYTES % (AUTO) 6.3 % (3-13); PLATELET COUNT 325 10^3/uL (150-450); RED BLOOD COUNT 4.81 10^6/uL (3.72-5.28); RED CELL DISTRIBUTION WIDTH 14.4 % (11.5-14.0); SEGMENTED NEUTROPHILS % (AUTO) 59.2 % (42-78); TOTAL CELLS COUNTED % (AUTO) 100 %; WHITE BLOOD COUNT 6.5 10^3/uL (4.0-10.5)
[2019-05-27 15:31] LABS: ALBUMIN 4.6 g/dL (3.5-5.0); ALKALINE PHOSPHATASE 80 U/L (38-126); ANION GAP 10 (5-19); ASPARTATE AMINO TRANSFERASE 32 U/L (14-36); BILIRUBIN,DIRECT 0.1 mg/dL (0.0-0.4); BILIRUBIN,TOTAL 0.4 mg/dL (0.2-1.3); BLOOD UREA NITROGEN 14 mg/dL (7-20); CALCIUM 10.4 mg/dL (8.4-10.2); CARBON DIOXIDE 33 mmol/L (22-30); CHLORIDE 99 mmol/L (98-107); CHOLESTEROL 272.36 mg/dL (0-200); GLUCOSE 105 mg/dL (75-110); POTASSIUM 4.6 mmol/L (3.6-5.0); TOTAL PROTEIN 7.8 g/dL (6.3-8.2); TRIGLYCERIDES 66 mg/dL (<150)
[2019-05-27 15:53] LABS: DIRECT LDL 110 mg/dL (<100)
== END ==
LOC: OD 14:36
PROVIDERS: ATTEND Internal Medicine Geriatric Medicine
DX: R10.9 Unspecified abdominal pain (principal); Z11.4 Encounter for screening for human immunodeficiency virus [HIV]; Z13.220 Encounter for screening for lipoid disorders
CPT/HCPCS: 36415; 80053; 80061; 85025; 86701

== ENCOUNTER 2019-06-10 11:33 | Emergency (ER) | payer OTHER ==
[2019-06-10] MEDS ORDERED: DIPHENHYDRAMINE HCL 50 MG CAPSULE PO ONE (11:45)
[2019-06-10] MEDS ORDERED: METHYLPREDNISOLONE INJ 125 MG/2 ML SDV IV ONE (11:45)
[2019-06-10] MEDS ORDERED: METOCLOPRAMIDE HCL INJ/PF 10 MG/2 ML SDV IV ONE (11:45)
--- NOTE | 2019-06-10 11:45 | ER Document Report ---
ED Medical Screen (RME) - General Chief Complaint: Headache <24 hrs old Stated Complaint: HEADACHE/NOSE BLEED Time Seen by Provider: 06/10/19 11:41 Primary Care Provider: DENILSON WILSON MD [Primary Care Provider] - Follow up as needed TRAVEL OUTSIDE OF THE [place] IN LAST 30 DAYS: No - HPI Notes: 06/10/19 11:44 Patient is a 34-year-old female with a history of migraines and recurrent nosebleeds who presents complaining of having a headache over the past couple days and having a nosebleed while she was at work today. Patient states that her nosebleeds have been more frequent over the past few weeks. She has light sensitivity associated with nausea as well when it comes to her headaches. Patient states that this does mimic previous headaches and is not the worst of her life and did not start as a thunderclap. Denies fever, chest pain, shortness of breath, abdominal pain. I have treated and performed a rapid initial assessment of this patient. A comprehensive ED assessment and evaluation of the patient, analysis of test results and completion of medical decision making process will be conducted by additional ED providers. PHYSICAL EXAMINATION: GENERAL: Well-appearing, well-nourished and in no acute distress. A&Ox4. Answers questions appropriately. Neuro: Cranial nerves grossly intact. NIH 0. GCS 15. Nose/oropharynx: There is no evidence of epistasis at this time. Oropharynx is clear. - Related Data Allergies/Adverse Reactions: prochlorperazine edisylate [From Compazine] Allergy (Intermediate, Verified 06/10/19 11:42) Hives prochlorperazine maleate [From Compazine] Allergy (Intermediate, Verified 06/10/19 11:42) Hives haloperidol [From Haldol] Allergy (Verified 06/10/19 11:42) haloperidol lactate [From Haldol] Allergy (Verified 06/10/19 11:42) ketorolac tromethamine [From Toradol] Allergy (Verified 06/10/19 11:42) NSAIDS (Non-Steroidal Anti-Inflamma [Nsaids] Allergy (Verified 06/10/19 11:42) Past Medical History - Past Medical History Cardiac Medical History: Denies: Hx Atrial Fibrillation, Hx Coronary Artery Disease, Hx Heart Attack, Hx Hypertension Pulmonary Medical History: Denies: Hx Asthma, Hx Bronchitis, Hx COPD, Hx Pneumonia Neurological Medical History: Reports: Hx Migraine. Denies: Hx Cerebrovascular Accident, Hx Seizures Renal/ Medical History: Denies: Hx Peritoneal Dialysis GI Medical History: Musculoskeltal Medical History: Denies Hx Arthritis, Reports Hx Musculoskeletal Trauma Psychiatric Medical History: Reports: Hx Anxiety, Hx Bipolar Disorder Denies: Hx Attention Deficit Hyperactivity Disorder Infectious Medical History: Past Surgical History: Reports: Hx Abdominal Surgery - LAP x 2, Hx Appendectomy, Hx Section - x2, Hx Gynecologic Surgery - oopherectomy, Hx Hysterectomy, Hx Orthopedic Surgery - R Shoulder. Denies: Hx Pacemaker - Immunizations Immunizations up to date: Yes Hx Diphtheria, Pertussis, Tetanus Vaccination: Yes - 2007 Physical Exam - Vital signs Vitals: Temp Pulse Resp BP Pulse Ox 98.3 F 131 H 20 147/93 H 96 06/10/19 11:39 06/10/19 11:39 06/10/19 11:39 06/10/19 11:39 06/10/19 11:39 Course - Vital Signs Vital signs: Temp Pulse Resp BP Pulse Ox 98.3 F 131 H 20 147/93 H 96 06/10/19 11:39 06/10/19 11:39 06/10/19 11:39 06/10/19 11:39 06/10/19 11:39 Doctor's Discharge - Discharge Referrals: DENILSON WILSON MD [Primary Care Provider] - Follow up as needed
[2019-06-10] MEDS ORDERED: NORMAL SALINE 500 ML IV ONE (11:46)
[2019-06-10] MEDS ORDERED: ACETAMINOPHEN 325 MG TABLET PO ONE (11:46)
[2019-06-10 12:23] LABS: ABSOLUTE BASOPHILS # (AUTO) 0.1 10^3/uL (0.0-0.2); ABSOLUTE EOSINOPHILS # (AUTO) 0.5 10^3/uL (0.0-0.6); ABSOLUTE LYMPHOCYTES (AUTO) 3.9 10^3/uL (0.5-4.7); ABSOLUTE MONOCYTES (AUTO) 0.6 10^3/uL (0.1-1.4); ABSOLUTE NEUT (AUTO) 3.1 10^3/uL (1.7-8.2); BASOPHILS % (AUTO) 1.2 % (0-2); EOSINOPHILS % (AUTO) 6.5 % (0-6); HEMATOCRIT 40.5 % (36.0-47.0); HEMOGLOBIN 14.2 g/dL (12.0-15.5); LYMPHOCYTES % (AUTO) 47.2 % (13-45); MEAN CORPUSCULAR HEMOGLOBIN 29.4 pg (27.0-33.4); MEAN CORPUSCULAR HGB CONC 35.1 g/dL (32.0-36.0); MEAN CORPUSCULAR VOLUME 84 fl (80-97); MONOCYTES % (AUTO) 7.5 % (3-13); PLATELET COUNT 366 10^3/uL (150-450); RED BLOOD COUNT 4.84 10^6/uL (3.72-5.28); RED CELL DISTRIBUTION WIDTH 13.8 % (11.5-14.0); SEGMENTED NEUTROPHILS % (AUTO) 37.6 % (42-78); TOTAL CELLS COUNTED % (AUTO) 100 %; WHITE BLOOD COUNT 8.3 10^3/uL (4.0-10.5)
[2019-06-10 12:38] LABS: ALBUMIN 4.8 g/dL (3.5-5.0); ALKALINE PHOSPHATASE 76 U/L (38-126); ANION GAP 10 (5-19); ASPARTATE AMINO TRANSFERASE 37 U/L (14-36); BILIRUBIN,DIRECT 0.3 mg/dL (0.0-0.4); BILIRUBIN,TOTAL 0.5 mg/dL (0.2-1.3); BLOOD UREA NITROGEN 16 mg/dL (7-20); CALCIUM 9.2 mg/dL (8.4-10.2); CARBON DIOXIDE 28 mmol/L (22-30); CHLORIDE 101 mmol/L (98-107); GLUCOSE 92 mg/dL (75-110); POTASSIUM 4.3 mmol/L (3.6-5.0); TOTAL PROTEIN 7.8 g/dL (6.3-8.2)
[2019-06-10 12:46] LABS: APPEARANCE,URINE CLEAR; BILIRUBIN,URINE NEGATIVE (NEGATIVE); COLOR,URINE YELLOW; GLUCOSE, URINE NEGATIVE (NEGATIVE); KETONES,URINE TRACE mg/dL (NEGATIVE); PROTEIN,URINE 30 mg/dL (NEGATIVE); URINE SPECIFIC GRAVITY 1.019; UROBILINOGEN,URINE NEGATIVE mg/dL (<2.0)
--- NOTE | 2019-06-10 13:02 | ER Document Report ---
ED General - General Chief Complaint: Headache Stated Complaint: HEADACHE/NOSE BLEED Time Seen by Provider: 06/10/19 11:41 Primary Care Provider: DENILSON WILSON MD [Primary Care Provider] - Follow up as needed Notes: 34-year-old female with history of migraines presents with migraine headache for the last 2 days. Patient states this feels like her usual migraine, is not worst in her life, and did not occur suddenly. Patient has associated nausea and 2 episodes of vomiting. Patient also has associated photophobia and phonophobia. Patient also is complaining of a nosebleed that occurred this morning that has been intermittent for the past few weeks. Patient denies fever, neck pain, abdominal pain, chest pain, shortness of breath. TRAVEL OUTSIDE OF THE [place] IN LAST 30 DAYS: No - Related Data Allergies/Adverse Reactions: prochlorperazine edisylate [From Compazine] Allergy (Intermediate, Verified 06/10/19 11:42) Hives prochlorperazine maleate [From Compazine] Allergy (Intermediate, Verified 06/10/19 11:42) Hives haloperidol [From Haldol] Allergy (Verified 06/10/19 11:42) haloperidol lactate [From Haldol] Allergy (Verified 06/10/19 11:42) ketorolac tromethamine [From Toradol] Allergy (Verified 06/10/19 11:42) NSAIDS (Non-Steroidal Anti-Inflamma [Nsaids] Allergy (Verified 06/10/19 11:42) Past Medical History - Social History Smoking Status: Never Smoker Chew tobacco use (# tins/day): No Frequency of alcohol use: None Drug Abuse: None Family History: Reviewed & Not Pertinent Patient has suicidal ideation: No Patient has homicidal ideation: No - Past Medical History Cardiac Medical History: Denies: Hx Atrial Fibrillation, Hx Coronary Artery Disease, Hx Heart Attack, Hx Hypertension Pulmonary Medical History: Denies: Hx Asthma, Hx Bronchitis, Hx COPD, Hx Pneumonia Neurological Medical History: Reports: Hx Migraine. Denies: Hx Cerebrovascular Accident, Hx Seizures Renal/ Medical History: Denies: Hx Peritoneal Dialysis GI Medical History: Musculoskeletal Medical History: Denies Hx Arthritis, Reports Hx Musculoskeletal Trauma Psychiatric Medical History: Reports: Hx Anxiety, Hx Bipolar Disorder Denies: Hx Attention Deficit Hyperactivity Disorder Infectious Medical History: Past Surgical History: Reports: Hx Abdominal Surgery - LAP x 2, Hx Appendectomy, Hx Section - x2, Hx Gynecologic Surgery - oopherectomy, Hx Hysterectomy, Hx Orthopedic Surgery - R Shoulder. Denies: Hx Pacemaker - Immunizations Immunizations up to date: Yes Hx Diphtheria, Pertussis, Tetanus Vaccination: Yes - 2007 Review of Systems - Review of Systems Notes: Positive for constitutional: Negative for fever. HENT: Positive for nosebleed. Negative for sore throat. Eyes: Negative for visual changes. Cardiovascular: Negative for chest pain. Respiratory: Negative for shortness of breath. Gastrointestinal: Negative for abdominal pain, vomiting or diarrhea. Genitourinary: Negative for dysuria. Musculoskeletal: Negative for back pain. Skin: Negative for rash. Neurological: Positive for headache. Negative for weakness or numbness. 10 point ROS negative except as marked above and in HPI. Physical Exam - Vital signs Vitals: Temp Pulse Resp BP Pulse Ox 98.3 F 131 H 20 147/93 H 96 06/10/19 11:39 06/10/19 11:39 06/10/19 11:39 06/10/19 11:39 06/10/19 11:39 - Notes Notes: GENERAL: Well-appearing, well-nourished and in no acute distress. HEAD: Atraumatic, normocephalic. EYES: Pupils equal round and reactive to light, extraocular movements intact, sclera anicteric, conjunctiva are normal. ENT: No nose bleeds. TMs normal, nares patent, oropharynx clear without exudates. Moist mucous membranes. NECK: Normal range of motion, supple without lymphadenopathy or JVD. LUNGS: Breath sounds clear to auscultation bilaterally and equal. No wheezes rales or rhonchi. HEART: Regular rate and rhythm without murmurs, rubs or gallops. ABDOMEN: Soft, nontender. No guarding, no rebound. No masses appreciated. EXTREMITIES: Normal range of motion, no pitting or edema. No clubbing or cyanosis. NEUROLOGICAL: Cranial nerves II through XII grossly intact. Normal speech, normal gait. PSYCH: Normal mood, normal affect. SKIN: Warm, Dry, normal turgor, no rashes or lesions noted. Course - Re-evaluation Re-evalutation: 06/10/19 Presentation of a headache that appears to be most consistent with tension versus migrainous type headache. Headache was not maximal in onset, patient has no focal neurologic deficits, no nuchal rigidity, vital signs within normal limits, no papilledema, and patient is overall well in appearance. Based on clinical history and examination I do not suspect an acute subarachnoid hemorrhage, dural venous sinus thrombosis, acute meningitis, or intercranial mass. Labwork ordered out in triage included CBC and CMP. No anemia, no leukocytosis. CMP WNL. Given my low clinical suspicion for any acute life- threatening etiology, I do not feel advanced neuro imaging or laboratory testing is indicated at this time. Will proceed with headache cocktail and reassess 06/10/19 14:23 Pt's headache has mildly improved. 06/10/19 15:38 Pt's headache has mildly improved. Pt just received Sumatriptan SubQ. Pt is requesting head CT due to "nosebleeds" with the migraine and states this is different than her usual. Pt previously stated that this migraine was similar in pattern to her previous. CT head ordered. 06/10/19 16:34 CT head is negative however impression states "evidence of acute intracranial process." Spoke with Dr. Pérez, radiologist, who states he will put in an addednum. 06/10/19 17:10 CT head report given to pt and discussed results. Pt is still in pain and is tearful. Discussed with attending, Dr. Lamas, who will evaluate pt. 06/10/19 17:20 Dr. Lamas evaluated pt. Recommended Ativan 1 mg IVP and Hydroxyzine 75 mg IM. 06/10/19 18:15 Dr. Lamas reevaluated pt. Pt states improved. Strict return precautions given. Pt to follow up with PCP. Pt voices understanding and agrees with plan of care. - Vital Signs Vital signs: Temp Pulse Resp BP Pulse Ox 98.4 F 106 H 18 132/67 H 96 06/10/19 17:56 06/10/19 17:56 06/10/19 17:56 06/10/19 17:56 06/10/19 17:56 - Laboratory Result Diagrams: 06/10/19 12:07 06/10/19 12:07 Laboratory results interpreted by me: 06/10/19 06/10/19 06/10/19 12:07 12:07 12:07 Lymph % (Auto) 47.2 H Eos % (Auto) 6.5 H Seg Neutrophils % 37.6 L AST 37 H Urine Protein 30 H Urine Ketones TRACE H Urine Ascorbic Acid 40 H Discharge - Discharge Clinical Impression: Headache Qualifiers: Headache type: unspecified Headache chronicity pattern: acute headache Intractability: not intractable Qualified Code(s): R51 - Headache Condition: Stable Disposition: HOME, SELF-CARE Additional Instructions: Please follow-up with your primary care doctor in 3 to 5 days. Return to ER for any worsening symptoms, including neck pain, fever, worsening headache, nausea/vomiting, abdominal pain, or any other symptoms that are concerning to you. Referrals: DENILSON WILSON MD [Primary Care Provider] - Follow up in 3-5 days
[2019-06-10] MEDS ORDERED: SUMATRIPTAN SUCCINATE INJ/PF 6 MG/0.5 ML SDV SUBCUT ONE (14:23)
[2019-06-10] MEDS ORDERED: NORMAL SALINE 1000 ML 1,000 ML IV ONE ×2 (14:24→15:40)
--- NOTE | 2019-06-10 16:10 | RADIOLOGY REPORT (SQ) ---
EXAM DESCRIPTION: CT HEAD WITHOUT COMPLETED DATE/TIME: 06/10/2019 3:46 pm REASON FOR STUDY: headache, nosebleed COMPARISON: None. TECHNIQUE: Axial images acquired through the brain without intravenous contrast. Images reviewed wi th bone, brain and subdural windows. Additional sagittal and coronal reconstructions were generated. Images stored on PACS. All CT scanners at this facility use dose modulation, iterative reconstruction, and/or weight based d osing when appropriate to reduce radiation dose to as low as reasonably achievable (ALARA). [facility]: Dose Right [facility]: CareDose [facility]: Dose Right [facility]: Teradose 4D [facility]: nooked RADIATION DOSE: CT Rad equipment meets quality standard of care and radiation dose reduction techniq ues were employed. CTDIvol: 53.2 mGy. DLP: 964 mGy-cm. mGy. LIMITATIONS: None. FINDINGS: VENTRICLES: Normal size and contour. CEREBRUM: No masses. No hemorrhage. No midline shift. No evidence for acute infarction. Normal gra y/white matter differentiation. No areas of low density in the white matter. CEREBELLUM: No masses. No hemorrhage. No alteration of density. No evidence for acute infarction. EXTRAAXIAL SPACES: No fluid collections. No masses. ORBITS AND GLOBE: No intra- or extraconal masses. Normal contour of globe without masses. CALVARIUM: No fracture. PARANASAL SINUSES: Mild mucosal thickening and fluid within the ethmoid air cells. Remaining sinuses are clear. SOFT TISSUES: No mass or hematoma. OTHER: No other significant finding. IMPRESSION: Evidence of acute intracranial process. Mild mucosal thickening within the ethmoid air cells. Remaining sinuses are clear. EVIDENCE OF ACUTE STROKE: NO. COMMENT: Quality ID # [id number]: Final reports with documentation of one or more dose reduction techniques (e.g., Automated exposure control, adjustment of the mA and/or kV according to patient size, use of iterative reconstruction technique) TECHNICAL DOCUMENTATION: JOB ID: [id number] [employer]- All Rights Reserved Reading location - IP/workstation name: [email or web address]
[2019-06-10] MEDS ORDERED: LORAZEPAM INJ 2 MG/1 ML VIAL IV ONE (17:20)
[2019-06-10] MEDS ORDERED: HYDROXYZINE HCL INJ 50 MG/1 ML VIAL IM ONE (17:20)
[2019-06-10 17:56] VITALS: BP 132/67
== END 2019-06-10 18:29 | disposition home or self-care (01) ==
LOC: ER 11:33
DX: R51 Headache (principal); R04.0 Epistaxis; H53.149 Visual discomfort, unspecified
CPT/HCPCS: 99284; 96372; 96361; 96374; 96375; 36415; 85025; 81025; 80053; 81001; 70450; J3410; J2930; J2765; J2060; J3030; J7030; J7040